=== PATIENT | male | born 1975 | race Caucasian/White ===

== ENCOUNTER 2017-04-21 09:28 | Emergency (ER) | payer SELFPAY ==
[~2017-04-21] VITALS: Ht 180.3 cm; Wt 100.0 kg
[~2017-04-21 09:28] MED LIST: ADVIL200 MG PO; AMOXICILLIN 50500 MG PO; CEPHALEXIN500 M1 PO; COUGH SYRUP; CYMBALTA; FLEXERIL 1010 MG/TAB PO; IBU800 M1 PO; LORTAB 5/500 501 TAB PO; NKDA; NO HOME MEDICATIONS; NORCO 325 MG-7.1 TAB PO; PERCOCET 325 MG1 TA2 PO; PERCOCET 325 MG1 TA3 PO; VENTOLIN0.09 MG IH; WELLBUTRIN PO
[2017-04-21 09:31] VITALS: TEMP 97.8
[2017-04-21 09:48] LABS: BASO # 0.1 (0.0-0.2); BASO % 0.8 % (0.0-2.0); EOS # 0.1 (0.0-0.7); EOS % 0.9 % (0-4.0); GRAN # 8.8 (1.4-6.5); GRAN % 73.5 % (42.2-75.2); HEMATOCRIT 44.7 % (42.0-52.0); HEMOGLOBIN 15.6 g/dl (13.5-18.0); LYMPH # 2.2 (1.2-3.4); LYMPH % 18.7 % (20.0-51.0); MEAN CELL VOLUME 95 fl (80.0-100.0); MEAN CORPUSCULAR HEMOGLOBIN 33 pg (27.0-31.0); MEAN CORPUSCULAR HGB CONC 35 g/dl (33.0-37.0); MONO # 0.7 (0.1-0.6); MONO % 5.5 % (1.7-9.3); PLATELET COUNT 270 K/mm3 (130-400); RED BLOOD COUNT 4.72 M/mm3 (4.20-5.60); REDCELL DISTRIBUTION WIDTH-CV 12.3 % (11.5-14.5)
[2017-04-21 10:04] LABS: ADJUSTED CALCIUM 8.8 mg/dL (8.4-10.2); ALANINE AMINOTRANSFERASE 29 U/L (21-72); ALBUMIN 4.3 gm/dL (3.5-5.0); ALKALINE PHOSPHATASE 79 U/L (50-136); ANION GAP 9 mmol/L (7-16); BILIRUBIN,TOTAL 0.8 mg/dL (0.0-1.0); BLOOD UREA NITROGEN 14 mg/dL (9-20); CARBON DIOXIDE 26 mmol/L (22-30); CHLORIDE 102 mmol/L (98-107); GLUCOSE 97 mg/dL (74-106); LIPASE 33 U/L (23-300); POTASSIUM 4.3 mmol/L (3.4-5.0); SODIUM 137 mmol/L (137-145); TOTAL PROTEIN 7.5 gm/dL (6.4-8.2)
[2017-04-21 10:21] LABS: TROPONIN-I < 0.012 ng/mL (0.000-0.034)
[2017-04-21 11:38] VITALS: BP 111/68; PULSE 74
== END 2017-04-21 11:42 | disposition home or self-care (01) ==
LOC: COL.ER 09:28
PROVIDERS: Emergency Medicine
DX: M54.6 Pain in thoracic spine (principal); R07.89 Other chest pain; F17.210 Nicotine dependence, cigarettes, uncomplicated; Z98.890 Other specified postprocedural states
CPT/HCPCS: J1885; Q9967

== ENCOUNTER 2017-06-19 17:36 | Emergency (ER) | payer SELFPAY ==
[~2017-06-19] VITALS: Ht 180.3 cm; Wt 104.1 kg
[2017-06-19 17:42] VITALS: TEMP 97.7
[2017-06-19 18:20] VITALS: BP 118/77; PULSE 99
== END 2017-06-19 18:20 | disposition left against medical advice (07) ==
LOC: COL.ER 17:36
DX: T50.7X1A Poisoning by analeptics and opioid receptor antagonists, accidental (unintentional), initial encounter (principal); J45.909 Unspecified asthma, uncomplicated; G89.29 Other chronic pain; M54.9 Dorsalgia, unspecified; F17.290 Nicotine dependence, other tobacco product, uncomplicated

== ENCOUNTER 2017-08-23 20:36 | Emergency (ER) | payer BC ==
[~2017-08-23] VITALS: Ht 180.3 cm; Wt 104.5 kg
[2017-08-23 20:40] VITALS: BP 117/81; PULSE 126; TEMP 99.2
[2017-08-23 21:37] LABS: BASO # 0.1 (0.0-0.2); BASO % 0.5 % (0.0-2.0); EOS # 0.2 (0.0-0.7); EOS % 0.9 % (0-4.0); GRAN # 15.8 (1.4-6.5); GRAN % 84.9 % (42.2-75.2); HEMATOCRIT 48.5 % (42.0-52.0); LYMPH # 2.1 (1.2-3.4); LYMPH % 11.5 % (20.0-51.0); MEAN CELL VOLUME 92 fl (80.0-100.0); MEAN CORPUSCULAR HEMOGLOBIN 32 pg (27.0-31.0); MEAN CORPUSCULAR HGB CONC 35 g/dl (33.0-37.0); MEAN PLATELET VOLUME 9.1 fl (7.4-10.4); MONO # 0.4 (0.1-0.6); MONO % 1.9 % (1.7-9.3); PLATELET COUNT 315 K/mm3 (130-400); WHITE BLOOD COUNT 18.6 K/mm3 (4.8-10.8)
[2017-08-23 21:45] LABS: AMPHETAMINE URINE POSITIVE; BARBITURATES URINE NEGATIVE; BENZODIAZEPINES URINE NEGATIVE; BUPRENORPHINE URINE NEGATIVE; METHADONE URINE NEGATIVE; OPIATES URINE POSITIVE; OXYCODONE URINE NEGATIVE; PHENCYCLIDINE URINE NEGATIVE; PROPOXYPHENE URINE NEGATIVE; THC CANNABINOIDS URINE NEGATIVE; TRICYCLIC ANTIDEPRESS URINE NEGATIVE
[2017-08-23 21:45] LABS: ADJUSTED CALCIUM 8.6 mg/dL (8.4-10.2); ALANINE AMINOTRANSFERASE 30 U/L (21-72); ALBUMIN 4.7 gm/dL (3.5-5.0); ALCOHOL(ethanol),MEDICAL 70 mg/dL; ALKALINE PHOSPHATASE 90 U/L (50-136); ANION GAP 13 mmol/L (7-16); BILIRUBIN,TOTAL 0.6 mg/dL (0.0-1.0); BLOOD UREA NITROGEN 12 mg/dL (9-20); CALCIUM 9.2 mg/dL (8.4-10.2); CARBON DIOXIDE 26 mmol/L (22-30); CHLORIDE 105 mmol/L (98-107); CREATININE, serum 0.89 mg/dL (0.66-1.25); GLUCOSE 110 mg/dL (74-106); LIPASE 54 U/L (23-300); POTASSIUM 3.4 mmol/L (3.4-5.0); SODIUM 145 mmol/L (137-145)
[2017-08-23 21:48] LABS: ACETAMINOPHEN < 10 ug/mL (10-30); SALICYLATE < 1.0 mg/dL
[2017-08-23 22:15] LABS: TSH w REFLEX 0.594 uIU/mL (0.465-4.680)
== END 2017-08-24 00:24 | disposition home or self-care (01) ==
LOC: COL.ER 20:36
PROVIDERS: Emergency Medicine
DX: S61.512A Laceration without foreign body of left wrist, initial encounter (principal); S60.811A Abrasion of right wrist, initial encounter; F15.10 Other stimulant abuse, uncomplicated; G89.29 Other chronic pain; M54.9 Dorsalgia, unspecified; Z91.5 Personal history of self-harm; X78.1XXA Intentional self-harm by knife, initial encounter

== ENCOUNTER 2017-09-02 21:39 | Emergency (ER) | payer BC ==
[~2017-09-02] VITALS: Ht 180.3 cm; Wt 99.5 kg
[2017-09-02 21:49] VITALS: BP 146/89; TEMP 97.2
[2017-09-02 22:22] LABS: BASO # 0.1 (0.0-0.2); BASO % 0.6 % (0.0-2.0); EOS # 0.2 (0.0-0.7); EOS % 1.7 % (0-4.0); GRAN # 7.4 (1.4-6.5); GRAN % 68.3 % (42.2-75.2); HEMATOCRIT 44.9 % (42.0-52.0); HEMOGLOBIN 15.4 g/dl (13.5-18.0); LYMPH # 2.7 (1.2-3.4); LYMPH % 24.5 % (20.0-51.0); MEAN CELL VOLUME 92 fl (80.0-100.0); MEAN CORPUSCULAR HEMOGLOBIN 32 pg (27.0-31.0); MEAN CORPUSCULAR HGB CONC 34 g/dl (33.0-37.0); MEAN PLATELET VOLUME 9.1 fl (7.4-10.4); MONO # 0.5 (0.1-0.6); MONO % 4.5 % (1.7-9.3); PLATELET COUNT 316 K/mm3 (130-400); RED BLOOD COUNT 4.86 M/mm3 (4.20-5.60); WHITE BLOOD COUNT 10.9 K/mm3 (4.8-10.8)
[2017-09-02 22:34] LABS: ACETAMINOPHEN < 10 ug/mL (10-30); ALANINE AMINOTRANSFERASE 44 U/L (21-72); ALBUMIN 4.4 gm/dL (3.5-5.0); ALCOHOL(ethanol),MEDICAL 26 mg/dL; ALKALINE PHOSPHATASE 94 U/L (50-136); ANION GAP 13 mmol/L (7-16); BILIRUBIN,TOTAL 0.4 mg/dL (0.0-1.0); BLOOD UREA NITROGEN 18 mg/dL (9-20); CALCIUM 9.3 mg/dL (8.4-10.2); CARBON DIOXIDE 26 mmol/L (22-30); CHLORIDE 104 mmol/L (98-107); CREATININE, serum 0.98 mg/dL (0.66-1.25); GLUCOSE 103 mg/dL (74-106); SALICYLATE < 1.0 mg/dL; SODIUM 143 mmol/L (137-145); TOTAL PROTEIN 8.1 gm/dL (6.4-8.2)
[2017-09-02 22:35] LABS: AMPHETAMINE URINE NEGATIVE; BARBITURATES URINE NEGATIVE; BENZODIAZEPINES URINE NEGATIVE; BUPRENORPHINE URINE NEGATIVE; METHADONE URINE NEGATIVE; OPIATES URINE POSITIVE; OXYCODONE URINE POSITIVE; PHENCYCLIDINE URINE NEGATIVE; PROPOXYPHENE URINE NEGATIVE; THC CANNABINOIDS URINE NEGATIVE; TRICYCLIC ANTIDEPRESS URINE NEGATIVE
[2017-09-03 00:37] VITALS: PULSE 75
== END 2017-09-03 00:41 | disposition home or self-care (01) ==
LOC: COL.ER 21:39
PROVIDERS: Emergency Medicine
DX: R45.4 Irritability and anger (principal); J45.909 Unspecified asthma, uncomplicated; F99 Mental disorder, not otherwise specified; F17.290 Nicotine dependence, other tobacco product, uncomplicated; Z87.898 Personal history of other specified conditions